=== PATIENT | male | born 1995 ===

== ENCOUNTER 2019-02-28 10:21 | Emergency (ER) | payer SELFPAY ==
[~2019-02-28] VITALS: Ht 175.3 cm; Wt 72.7 kg
[2019-02-28 10:29] VITALS: Ht 175.3 cm; Wt 72.7 kg
[2019-02-28] MEDS ORDERED: EC-NAPROSYN500 MG PO (11:12)
[2019-02-28] MEDS ORDERED: CYCLOBENZAPRINE10 MG PO (11:12)
[2019-02-28 11:52] VITALS: BP 121/75
== END 2019-02-28 11:40 | disposition home or self-care (01) ==
LOC: D.ER 10:21
DX: S43.401A Unspecified sprain of right shoulder joint, initial encounter (principal); X58.XXXA Exposure to other specified factors, initial encounter